=== PATIENT | female | born 1960 | race Two or more races ===

== ENCOUNTER 2017-07-13 09:23 | Emergency (ER) | payer BC ==
[~2017-07-13] VITALS: Ht 165.1 cm; Wt 90.7 kg
[~2017-07-13 09:23] MED LIST: NO REPORTABLE MEDS
[2017-07-13 09:33] VITALS: BP 127/84
== END 2017-07-13 09:48 | disposition home or self-care (01) ==
LOC: ER 09:24
DX: J20.9 Acute bronchitis, unspecified (principal); J11.1 Influenza due to unidentified influenza virus with other respiratory manifestations; E11.9 Type 2 diabetes mellitus without complications
CPT/HCPCS: 99283; A4606; Z7610

== ENCOUNTER 2018-04-12 23:49 | Emergency (ER) | payer BC ==
[~2018-04-12] VITALS: Ht 160 cm; Wt 93.4 kg
[2018-04-13 00:03] VITALS: BP 134/73
[2018-04-13] MEDS ORDERED: IBUPROFEN 600 MG TABLET PO ONE ×2 (00:30→00:31)
== END 2018-04-13 01:50 | disposition home or self-care (01) ==
LOC: ER 23:49
DX: M25.561 Pain in right knee (principal); E11.9 Type 2 diabetes mellitus without complications; Z96.661 Presence of right artificial ankle joint
CPT/HCPCS: 73564-TC; A4606; Z7610

== ENCOUNTER 2019-12-15 20:48 | Emergency (ER) | payer BC ==
[~2019-12-15] VITALS: Ht 152.4 cm; Wt 90.7 kg
--- NOTE | 2019-12-15 21:20 | NUR ---
BIBS FOR C/O L SIDED CP RADIATING TO THE L SHOUDLER AND NECK SINCE AM -SOB, -N/V; PT AAOX4, -SOB, PLACED ON MONITOR, VSS, NAD NOTED, HEATHER CACERES
[2019-12-15 21:58] LABS: BASOPHILS # (AUTO) 0.1 /CMM (0.0-0.2); BASOPHILS % (AUTO) 1.3 % (0.0-2.0); EOSINOPHILS % (AUTO) 2.4 % (0.0-6.0); HEMATOCRIT 41 % (33-45); HEMOGLOBIN 13.6 g/dL (11.5-14.8); LYMPHOCYTES # (AUTO) 3.2 /CMM (0.8-4.8); LYMPHOCYTES % (AUTO) 40.8 % (20.0-44.0); MEAN CORPUSCULAR HGB CONC 33 g/dl (31.0-36.0); MEAN CORPUSCULAR VOLUME 93 fL (82-100); MONOCYTES # (AUTO) 0.6 /CMM (0.1-1.30); MONOCYTES % (AUTO) 7.4 % (2.0-12.0); NEUTROPHILS # (AUTO) 3.7 /CMM (1.8-8.9); NEUTROPHILS % (AUTO) 48.1 % (43.0-81.0); PLATELET COUNT (AUTO) 216 /CMM (150-450); RED BLOOD CELL COUNT(AUTO) 4.42 MIL/uL (4.0-5.2); WHITE BLOOD COUNT (AUTO) 7.7 K/uL (4.3-11.0)
[2019-12-15 22:13] LABS: ALANINE AMINOTRANSFERASE 43 U/L (12-78); ALBUMIN 3.8 g/dL (3.4-5.0); ALKALINE PHOSPHATASE 87 U/L (46-116); ASPARTATE AMINOTRANSFERASE 32 U/L (15-37); BILIRUBIN,DIRECT 0.1 mg/dL (0.0-0.2); BILIRUBIN,TOTAL 0.3 mg/dL (0.2-1.0); CARBON DIOXIDE 28 mmol/L (21-32); CHLORIDE 103 mmol/L (98-107); CREATININE 0.6 mg/dL (0.6-1.3); GLUCOSE 127 mg/dL (74-106); POTASSIUM 3.4 mmol/L (3.5-5.1); SODIUM SERUM 140 mmol/L (136-145); TOTAL PROTEIN, SERUM 7.6 g/dL (6.4-8.2); UREA NITROGEN, BLOOD 15 mg/dL (7-18)
--- NOTE | 2019-12-15 23:25 | NUR ---
Patient discharged to home in stable condition. Written and verbal after care instructions given. Patient verbalizes understanding of instruction. IV removed. Catheter intact and site benign. Pressure and 4x4 applied to site. No bleeding noted.
[2019-12-15 23:28] VITALS: BP 142/75
== END 2019-12-15 23:28 | disposition home or self-care (01) ==
LOC: ER 20:48
DX: R07.89 Other chest pain (principal); Z98.890 Other specified postprocedural states
CPT/HCPCS: 36415; 71045-TC; 80048-TC; 80076-TC; 84484-TC; 85025-TC

== ENCOUNTER 2020-12-31 15:20 | Emergency (ER) | payer BC, OTHER ==
[~2020-12-31] VITALS: Ht 154.9 cm; Wt 94.8 kg
--- NOTE | 2020-12-31 15:46 | NUR ---
SEEN AND EXAMINED BY .
--- NOTE | 2020-12-31 15:50 | NUR ---
PT IV LINE ESTABLISHED BLOOD DRAWN AND SENT TO LAB.
--- NOTE | 2020-12-31 15:55 | NUR ---
URINAL GIVEN BUT UNABLE TO PROVIDE SPECIMEN THIS TIME.
[2020-12-31 16:00] LABS: BASOPHILS # (AUTO) 0.1 K/uL (0.0-0.2); BASOPHILS % (AUTO) 1.1 % (0.0-2.0); EOSINOPHILS % (AUTO) 1.4 % (0.0-6.0); HEMATOCRIT 41 % (33-45); HEMOGLOBIN 13.4 g/dL (11.5-14.8); LYMPHOCYTES # (AUTO) 3.1 K/uL (0.8-4.8); LYMPHOCYTES % (AUTO) 35.4 % (20.0-44.0); MEAN CORPUSCULAR HGB CONC 33 g/dl (31.0-36.0); MEAN CORPUSCULAR VOLUME 92 fL (82-100); MONOCYTES # (AUTO) 0.6 K/uL (0.1-1.30); MONOCYTES % (AUTO) 7.4 % (2.0-12.0); NEUTROPHILS # (AUTO) 4.8 K/uL (1.8-8.9); NEUTROPHILS % (AUTO) 54.7 % (43.0-81.0); PLATELET COUNT (AUTO) 257 K/uL (150-450); WHITE BLOOD COUNT (AUTO) 8.8 K/uL (4.3-11.0)
[2020-12-31 16:16] LABS: CALCIUM, SERUM 8.9 mg/dL (8.5-10.1); CREATININE 0.6 mg/dL (0.6-1.3); POTASSIUM 3.9 mmol/L (3.5-5.1)
[2020-12-31] MEDS ORDERED: IV NS 0.9% 250 ML IV ONE (16:16)
[2020-12-31] MEDS ORDERED: IOHEXOL-300 100 ML VIAL IV ONE (16:16)
[2020-12-31 16:21] LABS: ALBUMIN 3.7 g/dL (3.4-5.0); BILIRUBIN,DIRECT 0.1 mg/dL (0.0-0.2); BILIRUBIN,TOTAL 0.2 mg/dL (0.2-1.0); TOTAL PROTEIN, SERUM 7.9 g/dL (6.4-8.2)
[2020-12-31] MEDS ORDERED: MORPHINE SULFATE INJ 2 MG/ML DISP.SYRIN ONE (18:14)
[2020-12-31] MEDS ORDERED: ONDANSETRON HCL/PF 4 MG/2 ML VIAL ONE (18:14)
[2020-12-31] MEDS ORDERED: MORPHINE SULFATE INJ 2 MG/ML DISP.SYRIN IV ONE (18:30)
[2020-12-31] MEDS ORDERED: ONDANSETRON HCL/PF - ER 4 MG/2 ML VIAL IV ONE (18:30)
[2020-12-31 18:34] LABS: BILIRUBIN,URINE NEGATIVE (NEGATIVE); COLOR,URINE YELLOW (YELLOW); LEUKOCYTE ESTERASE ,URINE NEGATIVE (NEGATIVE); NITRITE, URINE NEGATIVE (NEGATIVE); PH,URINE 5.5 (5.0-8.0); PROTEIN,URINE NEGATIVE (NEGATIVE); UGLUCOSE NEGATIVE (NEGATIVE); UROBILINOGEN,URINE 0.2 EU/dL (0.2)
--- NOTE | 2020-12-31 19:05 | NUR ---
rec'd report from javier sheffield for april
[2020-12-31] MEDS ORDERED: ACET-2605 PO (20:02)
--- NOTE | 2020-12-31 20:04 | NUR ---
Patient discharged to home in stable condition. Written and verbal after care instructions given. Patient verbalizes understanding of instruction. IV removed. Catheter intact and site benign. Pressure and 4x4 applied to site. No bleeding noted. Pt ambulatory with a steady gait
[2020-12-31 20:12] VITALS: BP 151/82
== END 2020-12-31 20:04 | disposition home or self-care (01) ==
LOC: ER 15:20
DX: R10.32 Left lower quadrant pain (principal); R10.31 Right lower quadrant pain; E78.5 Hyperlipidemia, unspecified; Z98.890 Other specified postprocedural states
CPT/HCPCS: 36415; 74177; 80048; 80076; 81003; 83690; 84703; 85025; 87086; 96374; 96375; 99285; J2270; J2405 ×2; J7050; Q9967

== ENCOUNTER 2023-12-17 21:13 | Emergency (ER) | payer BC ==
[~2023-12-17] VITALS: Ht 167.6 cm; Wt 90.7 kg
[~2023-12-17 21:13] MED LIST changes: +ACET-2605 PO
[2023-12-17] MEDS ORDERED: ERYT3.5O9 LEFTEYE (22:13)
[2023-12-17 23:06] VITALS: BP 144/79; TEMP 98.6; O2SAT 98
== END 2023-12-17 23:06 | disposition home or self-care (01) ==
LOC: ER 21:19
DX: H00.015 Hordeolum externum left lower eyelid (principal); E78.5 Hyperlipidemia, unspecified; Z98.890 Other specified postprocedural states; Z79.899 Other long term (current) drug therapy

== ENCOUNTER 2024-01-26 18:27 | Emergency (ER) | payer BC ==
[~2024-01-26] VITALS: Ht 152.4 cm; Wt 93.4 kg
[~2024-01-26 18:27] MED LIST changes: +ERYT3.5O9 LEFTEYE
[2024-01-26 19:02] VITALS: BP 130/78; TEMP 97.9; O2SAT 96
[2024-01-26] MEDS ORDERED: BENZONATATE 100 MG CAPSULE PO ONE (22:20)
[2024-01-26] MEDS ORDERED: IBUPROFEN 600 MG TABLET ONE (22:20)
[2024-01-26] MEDS: IBUPROFEN 600 MG TABLET PO ONE (22:22)
[2024-01-26] MEDS: BENZONATATE 100 MG CAPSULE PO PRN (22:22)
[2024-01-26] MEDS ORDERED: BENZ-13 PO (22:42)
== END 2024-01-26 23:10 | disposition home or self-care (01) ==
LOC: ER 19:15
DX: U07.1 COVID-19 (principal); E11.9 Type 2 diabetes mellitus without complications; E78.5 Hyperlipidemia, unspecified
CPT/HCPCS: 86403-TC; 87070-TC

== ENCOUNTER 2025-04-11 21:25 | Emergency (ER) | payer BC, MEDICAID ==
[~2025-04-11] VITALS: Ht 152.4 cm; Wt 90.7 kg
[~2025-04-11 21:25] MED LIST changes: +BENZ-13 PO
[2025-04-11 23:31] VITALS: BP 135/71; TEMP 98.2; O2SAT 97
== END 2025-04-11 23:31 | disposition home or self-care (01) ==
LOC: ER 21:27
DX: B34.9 Viral infection, unspecified (principal); H92.03 Otalgia, bilateral; R05.9 Cough, unspecified; R51.9 Headache, unspecified; E11.9 Type 2 diabetes mellitus without complications; I51.9 Heart disease, unspecified; Z20.822 Contact with and (suspected) exposure to COVID-19

== ENCOUNTER 2025-05-16 00:17 | Emergency (ER) | payer BC, MEDICAID ==
[~2025-05-16] VITALS: Ht 152.4 cm; Wt 92.1 kg
[2025-05-16 02:38] LABS: PLATELET COUNT (AUTO) 226 K/uL (150-450); RED BLOOD CELL COUNT(AUTO) 4.28 MIL/uL (4.0-5.2); RED CELL DISTRIBUTION WIDTH 13.7 % (11.5-15.0); WHITE BLOOD COUNT (AUTO) 8.0 K/uL (4.3-11.0)
[2025-05-16 02:47] LABS: CALCIUM, SERUM 9.1 mg/dL (8.5-10.1); CREATININE 0.7 mg/dL (0.6-1.3); SODIUM SERUM 139 mmol/L (136-145); UREA NITROGEN, BLOOD 22 mg/dL (7-18)
[2025-05-16 03:06] LABS: ASPARTATE AMINOTRANSFERASE 50 U/L (15-37); NT-PRO BNP 20 pg/mL (0-125); TOTAL PROTEIN, SERUM 7.7 g/dL (6.4-8.2)
[2025-05-16 05:06] VITALS: BP 134/86; TEMP 97.7; O2SAT 97
== END 2025-05-16 05:13 | disposition home or self-care (01) ==
LOC: ER 00:20
DX: R22.43 Localized swelling, mass and lump, lower limb, bilateral (principal); I50.9 Heart failure, unspecified; E11.9 Type 2 diabetes mellitus without complications; R00.2 Palpitations
CPT/HCPCS: 36415; 71045-TC; 80048-TC; 80076-TC; 83880; 84484-TC; 85025-TC